=== PATIENT | male | born 1975 | race Hispanic/Latino ===

== ENCOUNTER 2016-08-17 22:53 | Inpatient (IN) | payer MEDICAID ==
[2016-08-17 23:18] VITALS: O2SAT 98
--- NOTE | 2016-08-18 00:03 | C.PDOC ---
Time Seen by Provider: 08/17/16 23:52 Chief Complaint (Nursing): Psychiatric Evaluation History Per: Patient Current Symptoms Are (Timing): Still Present Suicide/Self Injury Attempted (Context): None Modifying Factor(s): Alcohol, Narcotics Severity: Moderate Associated Symptoms: Depression, Suicidal Thoughts Additional History Per: Prior Records Past Medical History Reviewed: Historical Data, Nursing Documentation, Vital Signs Vital Signs: Last Vital Signs Temp 98.4 F 08/17/16 23:13 Pulse 93 H 08/17/16 23:13 Resp 18 08/17/16 23:13 BP 129/86 08/17/16 23:13 Pulse Ox 98 08/18/16 00:03 - Medical History PMH: Anxiety, Bipolar Disorder, Depression, Hepatitis (Hx of) Surgical History: No Surg Hx - [facility] Procedures ALCOHOL DETOXIFICATION (12/26/13) GROUP PSYCHOTHERAPY (07/28/16) INDIV PSYCHOTHERAPY FOR SUBSTANCE ABUSE TREATMENT, SUPPORT (07/28/16) INDIVID PSYCHOTHERAP NEC (01/15/14) INDIVIDUAL PSYCHOTHERAPY, SUPPORTIVE (07/28/16) MEDICATION MANAGEMENT (07/28/16) MEDS MGMT FOR SUBSTANCE ABUSE TREATMENT, METHADONE MAINT (07/28/16) MEDS MGMT FOR SUBSTANCE ABUSE TREATMENT, OTH REPL MED (07/28/16) OTHER GROUP THERAPY (01/15/14) Family History: States: Unknown Family Hx - Social History Hx Tobacco Use: Yes Hx Alcohol Use: Yes Hx Substance Use: Yes (IVDU Heroin) - Immunization History Hx Tetanus Toxoid Vaccination: No Hx Influenza Vaccination: No Hx Pneumococcal Vaccination: No Review Of Systems Except As Marked, All Systems Reviewed And Found Negative. Constitutional: Negative for: Fever Cardiovascular: Negative for: Chest Pain Respiratory: Negative for: Shortness of Breath Gastrointestinal: Negative for: Vomiting, Abdominal Pain Musculoskeletal: Negative for: Neck Pain Neurological: Negative for: Weakness, Numbness, Seizures, Altered Mental Status Physical Exam - Physical Exam Appears: Non-toxic, No Acute Distress Skin: Normal Color, Warm, Dry Head: Atraumatic, Normacephalic Eye(s): bilateral: PERRL, EOMI Neck: Normal ROM, Supple Cardiovascular: Rhythm Regular Respiratory: Normal Breath Sounds, No Accessory Muscle Use Gastrointestinal/Abdominal: Soft, No Tenderness Extremity: Normal ROM Neurological/Psych: Oriented x3, Normal Motor, Normal Sensation ED Course And Treatment - Laboratory Results Result Diagrams: 08/18/16 00:26 08/18/16 00:26 O2 Sat by Pulse Oximetry: 98 Pulse Ox Interpretation: Normal Progress Note: Pt is medically stable for psychiatric admission. Disposition Counseled Patient/Family Regarding: Studies Performed, Diagnosis - Disposition Disposition: HOSPITALIZED Disposition Time: 02:53 Condition: STABLE - Clinical Impression Clinical Impression: Bipolar disorder, Drug abuse Decision To Admit - Pt Status Changed To: Hospital Disposition Of: Inpatient - Admit Certification Admit to Inpatient:: After my assessment, the patient will require hospitalization for at least two midnights. This is because of the severity of symptoms shown, intensity of services needed, and/or the medical risk in this patient being treated as an outpatient. - InPatient: Physician Admission Certification: I certify that this patient requires 2 or more midnights of care for the following reason:: Psych - . Bed Request Type: Psychiatry Admitting Physician: Lucila Persaud Patient Diagnosis: Bipolar disorder, Drug abuse
[2016-08-18 00:29] LABS: BASO # 0.1 K/uL (0.0-0.2); BASO % 0.7 % (0.0-2.0); EOS # 0.3 K/uL (0.0-0.7); HEMATOCRIT 37.7 % (35.0-51.0); LYMPH # 2.4 K/uL (1.0-4.3); MEAN CELL VOLUME 92.7 fL (80.0-94.0); MEAN CORPUSCULAR HGB CONC 33.4 g/dL (33.0-37.0); MEAN PLATELET VOLUME 9.6 fL (7.2-11.7); MONO # 0.6 K/uL (0.0-0.8); MONO % 7.8 % (0.0-10.0); NRBC % 0.1 % (0.0-2.0); RED CELL DISTRIBUTION WIDTH 13.7 % (11.5-14.5); WHITE BLOOD COUNT 8.2 K/uL (4.8-10.8)
[2016-08-18 00:38] LABS: LITHIUM 0.3 mmol/L (0.6-1.2)
[2016-08-18 00:40] LABS: CHLORIDE 96 mmol/L (98-107); POTASSIUM 4.1 mmol/L (3.6-5.2); SODIUM 137 mmol/L (132-148)
[2016-08-18 00:42] LABS: ALB/GLOB RATIO 1.1 (1.0-2.1); ALKALINE PHOSPHATASE 53 U/L (38-126); AST/SGOT 86 U/L (17-59); BILIRUBIN,TOTAL 0.4 mg/dL (0.2-1.3); CARBON DIOXIDE 31 mmol/L (22-30); GFR AFRICAN-AMERICAN > 60; TOTAL PROTEIN 7.7 g/dL (6.3-8.3)
[2016-08-18 00:43] LABS: ALCOHOL SERUM < 10 mg/dl (0-10); ALT/SGPT 149 U/L (21-72); BLOOD UREA NITROGEN 14 mg/dL (9-20); CALCIUM 8.5 mg/dl (8.6-10.4); GLUCOSE,RANDOM 92 mg/dL (75-110)
[2016-08-18 00:56] LABS: RBC URINE < 1 /hpf (0-3); URINE BILIRUBIN NEGATIVE (NEGATIVE); URINE BLOOD NEGATIVE (NEGATIVE); URINE COLOR Yellow (YELLOW); URINE GLUCOSE (UA) NORMAL (Normal); URINE KETONE NEGATIVE (NEGATIVE); URINE LEUKOCYTE ESTERASE NEG Leu/uL (Negative); URINE PROTEIN NEGATIVE (NEGATIVE); URINE UROBILINOGEN NORMAL mg/dL (0.2-1.0); WBC URINE 1 /hpf (0-5)
[2016-08-18] MEDS ORDERED: Lidocaine 1% Inj (20ml) ONE (02:50)
[2016-08-19 07:56] VITALS: BP 111/74; PULSE 88; RESP 19; TEMP 98
== END 2016-08-19 14:45 | disposition left against medical advice (07) | DRG 430 ==
LOC: C.ER 22:53 → SUPCPDRO 22:53 → C.5E 08-18 02:54
PROVIDERS: ADMIT Psychiatry & Neurology Psychiatry; ATTEND Psychiatry & Neurology Psychiatry
PROC: GZ3ZZZZ Medication Management (ICD-10-PCS; principal; 2016-08-18)
PROC: HZ81ZZZ Medication Management for Substance Abuse Treatment, Methadone Maintenance (ICD-10-PCS; 2016-08-18)
DX: F31.4 Bipolar disorder, current episode depressed, severe, without psychotic features (principal); F11.20 Opioid dependence, uncomplicated; R45.851 Suicidal ideations; F14.10 Cocaine abuse, uncomplicated; F41.9 Anxiety disorder, unspecified; F10.20 Alcohol dependence, uncomplicated; F17.210 Nicotine dependence, cigarettes, uncomplicated; Z91.013 Allergy to seafood

== ENCOUNTER 2016-11-01 19:37 | Inpatient (IN) | payer MEDICAID ==
[2016-11-01 20:49] LABS: BASO # 0.1 K/uL (0.0-0.2); BASO % 0.9 % (0.0-2.0); EOS # 0.2 K/uL (0.0-0.7); EOS % 3.4 % (0.0-4.0); HEMATOCRIT 38.5 % (35.0-51.0); MEAN CELL VOLUME 91.7 fL (80.0-94.0); MEAN CORPUSCULAR HEMOGLOBIN 30.7 pg (27.0-31.0); MEAN CORPUSCULAR HGB CONC 33.5 g/dL (33.0-37.0); MEAN PLATELET VOLUME 10.5 fL (7.2-11.7); MONO # 0.4 K/uL (0.0-0.8); MONO % 6.2 % (0.0-10.0); RED CELL DISTRIBUTION WIDTH 13.5 % (11.5-14.5); WHITE BLOOD COUNT 7.1 K/uL (4.8-10.8)
[2016-11-01 20:57] LABS: CHLORIDE 99 mmol/L (98-107)
[2016-11-01 20:58] LABS: POTASSIUM 4.2 mmol/L (3.6-5.2); SODIUM 140 mmol/L (132-148)
[2016-11-01 21:00] LABS: ALB/GLOB RATIO 1.3 (1.0-2.1); ALT/SGPT 133 U/L (21-72); AST/SGOT 86 U/L (17-59); BILIRUBIN,TOTAL 0.5 mg/dL (0.2-1.3); BLOOD UREA NITROGEN 14 mg/dL (9-20); CARBON DIOXIDE 30 mmol/L (22-30); GFR AFRICAN-AMERICAN > 60; GLUCOSE,RANDOM 104 mg/dL (75-110); TOTAL PROTEIN 6.9 g/dL (6.3-8.3)
[2016-11-01 21:01] LABS: ALCOHOL SERUM < 10 mg/dl (0-10); CALCIUM 8.8 mg/dl (8.6-10.4)
[2016-11-01 21:16] LABS: ALKALINE PHOSPHATASE 43 U/L (38-126)
--- NOTE | 2016-11-01 22:12 | C.PDOC ---
Time Seen by Provider: 11/01/16 20:11 Chief Complaint (Nursing): Psychiatric Evaluation History Per: Patient Onset/Duration Of Symptoms: Days Current Symptoms Are (Timing): Still Present Suicide/Self Injury Attempted (Context): None Modifying Factor(s): Alcohol, Narcotics Severity: Moderate Associated Symptoms: Depression, Suicidal Thoughts Additional History Per: Prior Records Past Medical History Reviewed: Historical Data, Nursing Documentation, Vital Signs Vital Signs: Last Vital Signs Temp 98.4 F 11/01/16 19:58 Pulse 69 11/01/16 19:58 Resp 16 11/01/16 19:58 BP 136/89 11/01/16 19:58 Pulse Ox 100 11/01/16 19:58 - Medical History PMH: Anxiety, Bipolar Disorder, Depression, Hepatitis (Hx of) - [facility] Procedures ALCOHOL DETOXIFICATION (12/26/13) GROUP PSYCHOTHERAPY (07/28/16) INDIV PSYCHOTHERAPY FOR SUBSTANCE ABUSE TREATMENT, SUPPORT (07/28/16) INDIVID PSYCHOTHERAP NEC (01/15/14) INDIVIDUAL PSYCHOTHERAPY, SUPPORTIVE (07/28/16) MEDICATION MANAGEMENT (08/18/16) MEDS MGMT FOR SUBSTANCE ABUSE TREATMENT, METHADONE MAINT (08/18/16) MEDS MGMT FOR SUBSTANCE ABUSE TREATMENT, OTH REPL MED (07/28/16) OTHER GROUP THERAPY (01/15/14) Family History: States: Unknown Family Hx - Social History Hx Tobacco Use: Yes Hx Alcohol Use: Yes Hx Substance Use: Yes (IVDU Heroin) - Immunization History Hx Tetanus Toxoid Vaccination: No Hx Influenza Vaccination: No Hx Pneumococcal Vaccination: No Review Of Systems Except As Marked, All Systems Reviewed And Found Negative. Constitutional: Negative for: Fever, Weakness Cardiovascular: Negative for: Chest Pain Respiratory: Negative for: Shortness of Breath Gastrointestinal: Negative for: Vomiting, Abdominal Pain Musculoskeletal: Negative for: Neck Pain Skin: Negative for: Rash Neurological: Negative for: Weakness, Numbness, Seizures Physical Exam - Physical Exam Appears: Non-toxic, No Acute Distress Skin: Normal Color, Warm, Dry, No Rash Head: Atraumatic, Normacephalic Eye(s): bilateral: PERRL, EOMI Neck: Normal ROM, Supple Cardiovascular: Rhythm Regular Respiratory: Normal Breath Sounds, No Accessory Muscle Use Gastrointestinal/Abdominal: Soft, No Tenderness Back: No CVA Tenderness Extremity: Normal ROM, No Deformity Neurological/Psych: Oriented x3, Normal Motor, Normal Sensation ED Course And Treatment - Laboratory Results Result Diagrams: 11/01/16 20:45 11/01/16 20:45 Lab Interpretation: No Acute Changes O2 Sat by Pulse Oximetry: 100 Pulse Ox Interpretation: Normal Progress Note: Pt is medically stable for psychiatric admission. Disposition Counseled Patient/Family Regarding: Studies Performed, Diagnosis - Disposition Disposition: HOSPITALIZED Disposition Time: 22:16 Condition: STABLE - Clinical Impression Clinical Impression: Bipolar disorder Decision To Admit - Pt Status Changed To: Hospital Disposition Of: Inpatient - Admit Certification Admit to Inpatient:: After my assessment, the patient will require hospitalization for at least two midnights. This is because of the severity of symptoms shown, intensity of services needed, and/or the medical risk in this patient being treated as an outpatient. - InPatient: Physician Admission Certification: I certify that this patient requires 2 or more midnights of care for the following reason:: Psych. - . Bed Request Type: Psychiatry Admitting Physician: Lucila Persaud Patient Diagnosis: Bipolar disorder
[2016-11-01 23:44] LABS: RBC URINE 1 /hpf (0-3); URINE BACTERIA RARE (<OCC); URINE BILIRUBIN NEGATIVE (NEGATIVE); URINE BLOOD NEGATIVE (NEGATIVE); URINE COLOR Yellow (YELLOW); URINE GLUCOSE (UA) NORMAL (Normal); URINE KETONE NEGATIVE (NEGATIVE); URINE LEUKOCYTE ESTERASE NEG Leu/uL (Negative); URINE PROTEIN NEGATIVE (NEGATIVE); URINE UROBILINOGEN NORMAL mg/dL (0.2-1.0); WBC URINE 2 /hpf (0-5)
[2016-11-02] MEDS ORDERED: Aluminum Hydroxide/Magnesium Hydroxide Susp (30 mL) PO PRN (10:35)
--- NOTE | 2016-11-02 10:41 | PCM.PSYCH ---
Initial Psychiatric Evaluation - Initial Psychiatric Evaluation Type of Admission: Voluntary Legal Status: Capacity Chief Complaint (in patient's own words): "I feel depressed." History of Present Illness and Precipitating Events: Patient was seen and evaluated, chart reviewed and discussed with the nurse. The patient is a 41yo male who is here for opioid abuse, depression, and suicidal ideation. The patient states that he is single with no children and is unemployed but supports himself by panhandling. He says that he used to live with a friend in [place]. He says that he progressively became depressed and suicidal but hasn't had any suicide attempts in the last 10yrs. However, he says that in the past he attempted suicide by trying to hang himself. He states that he was here on the psych floor some time this year and twice a couple years ago. Upon discharge, he stayed at the [facility] for 1 month and then stopped taking his medications and relapsed on drugs. He states that he injects 15 bags of heroin a day and last used yesterday. He also says that he drinks 3 pints of vodka a day and last used yesterday as well. He states that he's been to a couple of detox facilities over the past 20yrs including [facility] a month ago and [facility]. He denies the use of cocaine or marijuana. He says he is currently experiencing signs of withdrawal such as nausea, vomiting, diarrhea, hot and cold sweats, and shaking. He denies any auditory or visual hallucinations. He states that he feels hopeless and depressed and has had poor sleep. He denies a past medical history or allergies. The patient appears to have a depressed mood, flat affect, and is lethargic. He appears to be organized and have appropriate speech. He is slightly unkempt and has been lying in bed all day. Supportive therapy and psychoeducation were given. Current Medications: Active Medications Generic Name Dose Route Start Last Admin Trade Name Freq PRN Reason Stop Dose Admin Al Hydrox/Mg Hydrox/Simethicone 30 ml 11/02/16 10:35 Maalox 30 Ml PO TID PRN Indigestion / Heartburn Clonidine HCl 0.1 mg 11/02/16 10:35 Catapres PO Q8 PRN COWS Score More or Equal to 5 Ibuprofen 600 mg 11/01/16 23:54 Motrin Tab PO Q6 PRN Pain, moderate (4-7) Loperamide HCl 2 mg 11/02/16 10:35 Imodium PO Q8 PRN Diarrhea Lorazepam 1 mg 11/01/16 23:54 11/02/16 00:36 Ativan PO 1 mg Q6 PRN Administration Anxiety Methadone HCl 20 mg 11/02/16 10:35 Methadone PO 11/02/16 10:36 ONCE ONE Ondansetron HCl 4 mg 11/02/16 10:35 Zofran Tab PO Q8 PRN Nausea/Vomiting Paroxetine HCl 10 mg 11/03/16 10:00 Paxil PO QAM ANDERSON Trazodone HCl 100 mg 11/01/16 23:54 11/02/16 00:36 Desyrel PO 100 mg HS PRN Administration Sleep Past Psychiatric History - Past Psychiatric History Previous Treatment History: Inpatient Pertinent Medical Hx (Current Medical&Sleep Prob, Allergies): Allergies Allergy/AdvReac Type Severity Reaction Status Date / Time FISH Allergy Severe ANAPHYLAXIS Verified 11/01/16 20:00 Gabapentin [Neurontin] 300 mg PO TID #90 cap 08/01/16 Tegretol mg PO DAILY 11/01/16 Review of Systems - Review of Systems All systems: reviewed and no additional remarkable complaints except - Psychiatric Psychiatric: Anxiety, Depression, Irritability, Suicidal Ideation. absent: Auditory Hallucinations, Visual Hallucinations Mental Status Examination - Personal Presentation Personal Presentation: Looks stated age - Affect Affect: Constricted, Depressed - Motor Activity Motor Activity: Calm - Reliability in Providing Information Reliability in Providing Information: Fair - Speech Speech: Organized - Mood Mood: Depressed, Anxious - Formal Thought Process Formal Thought Process: No Impairment - Obsessions/Compulsions Obsessions: No Compulsions: No - Cognitive Functions Orientation: Person, Place, Situation, Time Sensorium: Alert Attention/Concentration: Attentive Abstract Thinking: Clarence Estimate of Intelligence: Below average Judgement: Imparied, as evidence by: Poor judgement, Imparied, as evidence by: Lack of insight into illness - Risk Risk: Suicidal, Withdrawal, Diminished functioning - Strength & Assets Inventory Strength & Assets Inventory: Cooperative DSM 5 DX - DSM 5 DSM 5 Diagnosis: Major depressive disorder recurrent severe without psychotic features Opioid use disorder severe Opioid withdrawal Alcohol use disorder severe Cocaine use disorder severe - Recommended/Plan of Treatment Treatment Recommendations and Plan of Treatment: Major depressive disorder recurrent severe without psychotic features CBT Psychoeducation Supportive therapy, group therapy, individual therapy Paxil 10 mg daily Trazodone 100 mg by mouth daily at bedtime Opioid withdrawal CBT Psychoeducation Supportive therapy, individual therapy Clonidine when necessary Methadone taper Opioid use disorder severe CBT Psychoeducation Supportive therapy, individual therapy Use ND for abstinence Alcohol use disorder severe CBT Psychoeducation Supportive therapy, individual therapy Use ND for abstinence Ativan when necessary Start folic acid/thiamine/multivitamin Cocaine use disorder severe CBT Psychoeducation Supportive therapy, individual therapy Use ND for abstinence - Smoking Cessation Smoking Cessation Initiated: No
[2016-11-03] MEDS: Multiple Vitamins Tab PO SCH (09:25)
--- NOTE | 2016-11-03 10:13 | PCM.PYCHPN ---
Psychiatric Progress Note - Psychiatric Progress Note Patient Chief Complaint: "I feel depressed." Mental Status Examination - Cognitive Function Orientation: Person, Place, Situation, Time - Mood Mood: Depressed, Anxious - Affect Affect: Constricted, Depressed - Formal Thought Process Formal Thought Process: No Impairment - Homicidal Ideation Homicidal Ideation: No Goal/Treatment Plan - Goal/Treatment Plan Progress Toward Problem(s) and Goals/Treatment Plan: Major depressive disorder recurrent severe without psychotic features CBT Psychoeducation Supportive therapy, group therapy, individual therapy Paxil 10 mg daily Trazodone 100 mg by mouth daily at bedtime Opioid withdrawal CBT Psychoeducation Supportive therapy, individual therapy Clonidine when necessary Methadone taper Opioid use disorder severe CBT Psychoeducation Supportive therapy, individual therapy Use MD for abstinence Alcohol use disorder severe CBT Psychoeducation Supportive therapy, individual therapy Use MD for abstinence Ativan when necessary Start folic acid/thiamine/multivitamin Cocaine use disorder severe CBT Psychoeducation Supportive therapy, individual therapy Use MD for abstinence
[2016-11-04 07:35] VITALS: BP 107/67; PULSE 76; RESP 16; TEMP 98.3; O2SAT 99
[2016-11-04] MEDS: Multiple Vitamins Tab PO SCH (09:06)
--- NOTE | 2016-11-04 11:54 | PCM.PYCHDC ---
Mental Status Examination - Mental Status Examination Orientation: Person, Place, Situation, Time Memory: Intact Mood: Neutral Affect: Constricted Speech: Soft Attention: WNL Concentration: WNL Association: WNL Fund of Knowledge: WNL Formal Thought Process: No Impairment Description of patient's judgement and insight: good, fair Psychotic Thoughts and Behaviors: denies any AVH Suicidal Ideation: No Current Homicidal Ideation?: No Discharge Summary - Discharge Note Reason for Hospitalization: Patient was seen and evaluated, chart reviewed and discussed with the nurse. The patient is a 41yo male who is here for opioid abuse, depression, and suicidal ideation. The patient states that he is single with no children and is unemployed but supports himself by panhandling. He says that he used to live with a friend in [place]. He says that he progressively became depressed and suicidal but hasn't had any suicide attempts in the last 10yrs. However, he says that in the past he attempted suicide by trying to hang himself. He states that he was here on the psych floor some time this year and twice a couple years ago. Upon discharge, he stayed at the [facility] for 1 month and then stopped taking his medications and relapsed on drugs. He states that he injects 15 bags of heroin a day and last used yesterday. He also says that he drinks 3 pints of vodka a day and last used yesterday as well. He states that he's been to a couple of detox facilities over the past 20yrs including [facility] a month ago and [facility]. He denies the use of cocaine or marijuana. He says he is currently experiencing signs of withdrawal such as nausea, vomiting, diarrhea, hot and cold sweats, and shaking. He denies any auditory or visual hallucinations. He states that he feels hopeless and depressed and has had poor sleep. He denies a past medical history or allergies. The patient appears to have a depressed mood, flat affect, and is lethargic. He appears to be organized and have appropriate speech. He is slightly unkempt and has been lying in bed all day. Consultations:: List each consultation separately and include: 1. Reason for request. 2. Findings. 3. Follow-up Summary of Hospital Course include:: 1. Description of specific treatment plan utilized for patients during their course of treatmen. 2. Summarize the time- course for resolution of acute symptoms and/or regressed behaviors. 3. Describe issues identified and worked on during hospitalization. 4. Describe medication utilized. 5. Describe medical problems identified and treated. 6. Reassessment of suicide risk Summary of Hospital Course: During the course of his stay, patient (pt) started progressively improving and he no longer remained anxious and irritable. He tolerated the withdrawal protocol very well. He didnt have any shakes, sweating, tremors or cramps or any other withdrawal symptoms upon discharge. He started attending groups and meetings and started socializing. He denied any feelings of hopelessness, helplessness, and worthlessness, denied any problem with the sleep or appetite, denied suicidal ideation or homicidal ideation. Pt denied any auditory or visual hallucinations. Patient remained calm and cooperative and remained compliant with the medications. Patient tolerated the medications very well and denied any side effects. - Final Diagnosis (DSM 5) Condition upon Discharge: STABLE DSM 5: Major depressive disorder recurrent severe without psychotic features Opioid withdrawal Opioid use disorder severe Alcohol use disorder severe Cocaine use disorder severe Disposition: HOME/ ROUTINE Follow-up Treatment Plan: Education: Pt was educated and counseled about the risks and benefits of taking and not taking medications. Pt was educated and counseled about the risks of drinking and abusing drugs. Pt was educated and counseled to go to the ER or call 911 if pt develop suicidal ideation or homicidal ideation, worsening of symptoms or severe side effects of the meds. Prescriptions/Medication Reconciliation: PARoxetine [Paxil] 10 mg PO QAM #30 tab traZODone [Desyrel] 100 mg PO HS PRN #30 tab PRN Reason: Sleep - Smoking Cessation Smoking Cessation Medication prescribed: No - Antipsychotic Medications Pt discharged on 2 or more routine antipsychotic medications: No
== END 2016-11-04 12:20 | disposition home or self-care (01) | DRG 430 ==
LOC: C.ER 19:37 → C.5E 22:17
PROVIDERS: ADMIT Psychiatry & Neurology Psychiatry; ATTEND Psychiatry & Neurology Psychiatry
DX: F33.2 Major depressive disorder, recurrent severe without psychotic features (principal); R45.851 Suicidal ideations; F11.23 Opioid dependence with withdrawal; F14.90 Cocaine use, unspecified, uncomplicated; F10.10 Alcohol abuse, uncomplicated

== ENCOUNTER 2016-12-01 23:25 | Inpatient (IN) | payer MEDICAID ==
--- NOTE | 2016-12-01 23:46 | C.PDOC ---
History Of Present Illness Patient presents to the ER with a complaint of hearing voices after going on a 5 day drinking binge. Patient states this is new for him; he reports the voices tell him to kill himself. Denies HI, suicidal plan, or physical complaints at this time. Time Seen by Provider: 12/01/16 23:46 Chief Complaint (Nursing): Psychiatric Evaluation History Per: Patient History/Exam Limitations: no limitations Onset/Duration Of Symptoms: Days Current Symptoms Are (Timing): Still Present Suicide/Self Injury Attempted (Context): None Modifying Factor(s): Alcohol Severity: None Pain Scale Rating Of: 0 Associated Symptoms: Suicidal Thoughts. denies: Suicidal Plan Involuntary Hold By: None Recent travel outside of the [place]: No Past Medical History Reviewed: Historical Data, Nursing Documentation, Vital Signs - Medical History PMH: Anxiety, Bipolar Disorder, Depression, Hepatitis (Hx of) Surgical History: No Surg Hx - [facility] Procedures ALCOHOL DETOXIFICATION (12/26/13) GROUP PSYCHOTHERAPY (07/28/16) INDIV PSYCHOTHERAPY FOR SUBSTANCE ABUSE TREATMENT, SUPPORT (07/28/16) INDIVID PSYCHOTHERAP NEC (01/15/14) INDIVIDUAL PSYCHOTHERAPY, SUPPORTIVE (07/28/16) MEDICATION MANAGEMENT (08/18/16) MEDS MGMT FOR SUBSTANCE ABUSE TREATMENT, METHADONE MAINT (08/18/16) MEDS MGMT FOR SUBSTANCE ABUSE TREATMENT, OTH REPL MED (07/28/16) OTHER GROUP THERAPY (01/15/14) Family History: States: No Known Family Hx - Social History Hx Tobacco Use: Yes Hx Alcohol Use: Yes Hx Substance Use: Yes - Immunization History Hx Tetanus Toxoid Vaccination: No Hx Influenza Vaccination: No Hx Pneumococcal Vaccination: No Review Of Systems Constitutional: Negative for: Fever, Chills Gastrointestinal: Negative for: Nausea, Vomiting, Diarrhea Psych: Positive for: Suicidal ideation Physical Exam - Physical Exam Appears: Non-toxic, Other (ETOH on breath) Skin: Warm, Dry Oral Mucosa: Moist Chest: Symmetrical, No Tenderness Cardiovascular: Rhythm Regular, No Murmur Respiratory: No Rales, No Rhonchi, No Wheezing Gastrointestinal/Abdominal: Soft, No Tenderness Neurological/Psych: Oriented x3 ED Course And Treatment - Laboratory Results Result Diagrams: 12/02/16 00:05 12/02/16 00:05 O2 Sat by Pulse Oximetry: 98 Pulse Ox Interpretation: Normal Progress Note: Blood work and urinalysis ordered. Crisis consulted. Disposition Discussed With DrLillie: Yuliana Peña Comment: accepted the pt on his service and took over the care at 2:06AM Doctor Will See Patient In The: Hospital Counseled Patient/Family Regarding: Studies Performed, Diagnosis - Disposition Disposition: HOSPITALIZED Disposition Time: 23:46 Condition: FAIR - POA Present On Arrival: None - Clinical Impression Clinical Impression: Bipolar 1 disorder, Opioid abuse, Alcohol abuse - Scribe Statement The provider has reviewed the documentation as recorded by the Scribe Antwon Combs All medical record entries made by the Scribe were at my direction and personally dictated by me. I have reviewed the chart and agree that the record accurately reflects my personal performance of the history, physical exam, medical decision making, and the department course for this patient. I have also personally directed, reviewed, and agree with the discharge instructions and disposition. Decision To Admit - Pt Status Changed To: Hospital Disposition Of: Inpatient - Admit Certification Admit to Inpatient:: After my assessment, the patient will require hospitalization for at least two midnights. This is because of the severity of symptoms shown, intensity of services needed, and/or the medical risk in this patient being treated as an outpatient. - InPatient: Physician Admission Certification: I certify that this patient requires 2 or more midnights of care for the following reason:: After my assessment, the patient will require hospitalization for at least two midnights. This is because of the severity of symptoms shown, intensity of services needed, and/or the medical risk in this patient being treated as an outpatient. - . Bed Request Type: Psychiatry Admitting Physician: Yuliana Peña Patient Diagnosis: Bipolar 1 disorder, Opioid abuse, Alcohol abuse
[2016-12-02 00:15] LABS: BASO # 0.1 K/uL (0.0-0.2); BASO % 0.9 % (0.0-2.0); EOS # 0.3 K/uL (0.0-0.7); EOS % 3.8 % (0.0-4.0); HEMOGLOBIN 13.2 g/dL (12.0-18.0); LYMPH # 3.3 K/uL (1.0-4.3); LYMPH % 47.8 % (20.0-40.0); MEAN CELL VOLUME 90.3 fL (80.0-94.0); MEAN CORPUSCULAR HEMOGLOBIN 30.4 pg (27.0-31.0); MEAN CORPUSCULAR HGB CONC 33.6 g/dL (33.0-37.0); MEAN PLATELET VOLUME 10.1 fL (7.2-11.7); MONO # 0.5 K/uL (0.0-0.8); MONO % 7.6 % (0.0-10.0); NEUT # 2.8 K/uL (1.8-7.0); NEUT % 39.9 % (50.0-75.0); NRBC % 0.1 % (0.0-2.0); RBC 4.36 Mil/uL (4.40-5.90); RED CELL DISTRIBUTION WIDTH 13.2 % (11.5-14.5); WHITE BLOOD COUNT 6.9 K/uL (4.8-10.8)
[2016-12-02 00:20] LABS: ALBUMIN 4.2 g/dL (3.5-5.0)
[2016-12-02 00:22] LABS: GFR AFRICAN-AMERICAN > 60; GFR NON-AFRICAN AMERICAN > 60
[2016-12-02 00:23] LABS: ALB/GLOB RATIO 1.1 (1.0-2.1); ALT/SGPT 134 U/L (21-72); AST/SGOT 93 U/L (17-59); BLOOD UREA NITROGEN 13 mg/dL (9-20); CALCIUM 8.9 mg/dl (8.6-10.4)
[2016-12-02 00:31] LABS: SQUAMOUS EPITHIAL < 1 /hpf (0-5); URINE AMORPHOUS SEDIMENT OCC /ul (<OCC); URINE BACTERIA RARE (<OCC); URINE BILIRUBIN NEGATIVE (NEGATIVE); URINE BLOOD NEGATIVE (NEGATIVE); URINE CLARITY Hazy (Clear); URINE COLOR Yellow (YELLOW); URINE GLUCOSE (UA) NORMAL (Normal); URINE LEUKOCYTE ESTERASE NEG Leu/uL (Negative); URINE NITRATE NEGATIVE (NEGATIVE); URINE PROTEIN NEGATIVE (NEGATIVE); URINE UROBILINOGEN NORMAL mg/dL (0.2-1.0)
[2016-12-02 01:00] LABS: BARBITURATES, UR NEGATIVE (NEGATIVE)
[2016-12-02 01:04] LABS: PHENCYCLIDINE, UR NEGATIVE (NEGATIVE)
[2016-12-02 01:34] LABS: BENZODIAZEPINES, UR POSITIVE (NEGATIVE); OPIATES, UR POSITIVE (NEGATIVE)
[2016-12-02 02:48] VITALS: O2SAT 97
[2016-12-02] MEDS ORDERED: Aluminum Hydroxide/Magnesium Hydroxide Susp (30 mL) PO PRN (10:09)
[2016-12-02] MEDS: Multiple Vitamins Tab PO SCH (13:45)
--- NOTE | 2016-12-02 18:44 | PCM.PSYCH ---
Initial Psychiatric Evaluation - Initial Psychiatric Evaluation Type of Admission: Voluntary Chief Complaint (in patient's own words): Of was drinking more for last 5 days, was not sleeping and was hearing voices telling me to kill myself. History of Present Illness and Precipitating Events: Patient is a 41 years old, single, unemployed, male, with history of bipolar disorder and alcohol use disorder was admitted due to worsening of his depression and command type auditory hallucinations telling him to kill himself. Patient reported he was noncompliant with treatment after discharge from the hospital, didn't follow-up with psychiatrist, ran out of medication. Reported for last 5 days he was drinking alcohol more than usual, unable to sleep and started hearing voices telling him to kill himself. Patient came to the hospital for help. Patient reported feeling depressed, decreased sleep and appetite, lost about 25 pounds over 3 months. Denied any suicidal or homicidal ideations currently, history of one suicidal attempts at the age of 14 years by hanging himself. Reported couldn't complete suicide has poor broke down. History of about 10 inpatient psychiatric hospitalization at [facility] ([facility]3]. Reported no current auditory hallucinations or visual hallucinations. Alcohol: Started drinking at the age of 26 years, currently was drinking 3 pints of vodka daily. His last drink was 24 of his ago. History of one previous detox and no rehabs. His longest period of abstinence was 9 months, 2 years ago. Heroine: Started using at the age of 19 years, 1 bundle daily, IV, last used 24 hours ago. Also smokes cigarettes, 1 pack daily and is requesting for nicotine patch. Patient was born in [place], high school graduation, not working for last 3 weeks. Currently lives with friends. Patient was never and has no children. His height is 6 feet 1 inch and weight is 175 pounds., Current Medications: Active Medications Generic Name Dose Route Start Last Admin Trade Name Freq PRN Reason Stop Dose Admin Al Hydrox/Mg Hydrox/Simethicone 30 ml 12/02/16 10:09 Maalox 30 Ml PO TID PRN Indigestion / Heartburn Clonidine HCl 0.1 mg 12/02/16 09:55 Catapres PO Q8 PRN COWS Score More or Equal to 5 Dicyclomine HCl 20 mg 12/02/16 13:28 Bentyl PO QID PRN ABDOMINAL PAIN Escitalopram Oxalate 10 mg 12/02/16 11:00 12/02/16 13:46 Lexapro PO 10 mg DAILY ANDERSON Administration Folic Acid 1 mg 12/02/16 10:00 12/02/16 13:48 Folic Acid PO 1 mg DAILY ANDERSON Administration Gabapentin 300 mg 12/02/16 10:00 12/02/16 17:55 Neurontin PO 300 mg BID ANDERSON Administration Ibuprofen 600 mg 12/02/16 10:46 Motrin Tab PO Q6H PRN Pain, moderate (4-7) Loperamide HCl 2 mg 12/02/16 10:09 Imodium PO Q8 PRN Diarrhea Methadone HCl 15 mg 12/03/16 10:00 Methadone PO 12/03/16 10:01 ONCE ONE Multivitamins 1 tab 12/02/16 10:00 12/02/16 13:45 Hexavitamin PO 1 tab DAILY ANDERSON Administration Nicotine 1 patch 12/03/16 10:00 Nicoderm Cq TD DAILY ANDERSON Ondansetron HCl 4 mg 12/02/16 09:55 Zofran Tab PO Q8 PRN Nausea/Vomiting Quetiapine Fumarate 50 mg 12/02/16 11:00 12/02/16 17:55 Seroquel PO 50 mg BID ANDERSON Administration Thiamine HCl 100 mg 12/02/16 10:00 12/02/16 13:45 Vitamin B1 Tab PO 100 mg DAILY ANDERSON Administration Trazodone HCl 100 mg 12/02/16 04:19 Desyrel PO HS PRN Insomnia Past Psychiatric History - Past Psychiatric History Previous Treatment History: Inpatient At [facility] hospital: [facility] ([facility]3] History of Abuse: None reported History of ETOH/Drug Use: See HPI History of Family Illness: Reported history of fall alcohol use in his paternal grandfather, paternal grandmother and his father Pertinent Medical Hx (Current Medical&Sleep Prob, Allergies): Allergies Allergy/AdvReac Type Severity Reaction Status Date / Time FISH Allergy Severe ANAPHYLAXIS Verified 11/01/16 20:00 Gabapentin [Neurontin] 300 mg PO TID #90 cap 08/01/16 Tegretol mg PO DAILY 11/01/16 PARoxetine [Paxil] 10 mg PO QAM #30 tab 11/04/16 traZODone [Desyrel] 100 mg PO HS PRN #30 tab 11/04/16 Hepatitis C Review of Systems - Psychiatric Psychiatric: Depression Mental Status Examination - Personal Presentation Personal Presentation: Looks stated age - Affect Affect: Depressed - Motor Activity Motor Activity: Calm - Reliability in Providing Information Reliability in Providing Information: Fair - Speech Speech: Organized - Mood Mood: Depressed - Formal Thought Process Formal Thought Process: No Impairment - Hallucinations/Delusions Hallucinations: Other (None reported) Delusions: Other - Obsessions/Compulsions Obsessions: None Compulsions: None - Cognitive Functions Orientation: Person, Place, Situation, Time Sensorium: Alert Attention/Concentration: Attentive Abstract Thinking: [place] Estimate of Intelligence: Average Judgement: Intact, as evidence by: Insight regarding need for hospitalization Memory: Recent intact, as evidence by: 3/3 object recall, Remote intact, as evidenced by: Ability to recall historical events - Risk Risk: Withdrawal, Diminished functioning - Strength & Assets Inventory Strength & Assets Inventory: Cooperative - Limitations Limitations: Other DSM 5 DX - DSM 5 DSM 5 Diagnosis: Bipolar 1 disorder most recent episode depressed with psychotic features Alcohol use disorder severe - Recommended/Plan of Treatment Treatment Recommendations and Plan of Treatment: Patient education Supportive therapy We'll start Ativan detox protocol for alcohol withdrawal symptoms Methadone detox for opiate withdrawal symptoms Other when necessary medications Patient wants to go to [facility] after discharge from the hospital for follow-up care Projected ELOS: 8 attend this Discharge Plan and Discharge Criteria: Patient wants to go to [facility] after discharge from the hospital for follow-up care - Smoking Cessation Smoking Cessation Initiated: Yes
[2016-12-03 09:44] VITALS: RESP 18
[2016-12-03] MEDS: Multiple Vitamins Tab PO SCH (10:19)
--- NOTE | 2016-12-03 16:00 | PCM.PYCHPN ---
Psychiatric Progress Note - Psychiatric Progress Note Patient seen today, length of contact: 16 min Patient Chief Complaint: I am feeling little better Problems Identified/Issues Discussed: Patient seen and evaluated, chart reviewed and discussed with the nurse. Patient reports improvement in his mood but still reports withdrawal symptoms, including cramps, nausea, sweating and headache. He denies any auditory or visual hallucinations. He reports improvement in the feelings of hopelessness and helplessness. He is taking medication and denied any side effects. Supportive therapy and psychoeducation were given. Medication Change: Yes (methaodne taper) Medical Record Reviewed: Yes Mental Status Examination - Cognitive Function Orientation: Person, Place, Situation, Time Memory: Intact Attention: WNL Concentration: Poor Association: WNL Fund of Knowledge: Poor - Mood Mood: Depressed - Affect Affect: Depressed - Speech Speech: Soft - Formal Thought Process Formal Thought Process: No Impairment - Suicidal Ideation Suicidal Ideation: No - Homicidal Ideation Homicidal Ideation: No Goal/Treatment Plan - Goal/Treatment Plan Need for Continued Stay: Discharge may exacerbated symptoms, Severe functional impairment Progress Toward Problem(s) and Goals/Treatment Plan: Bipolar 1 disorder most recent episode depressed with psychotic features Alcohol use disorder severe Patient education Supportive therapy We'll start Ativan detox protocol for alcohol withdrawal symptoms Methadone detox for opiate withdrawal symptoms Other when necessary medications Patient wants to go to [facility] after discharge from the hospital for follow-up care - Smoking Cessation Smoking Cessation Initiated: No
[2016-12-04 08:08] VITALS: BP 95/57; PULSE 73; TEMP 97.9
[2016-12-04] MEDS: Multiple Vitamins Tab PO SCH (10:09)
--- NOTE | 2016-12-04 10:15 | PCM.PYCHDC ---
Mental Status Examination - Mental Status Examination Orientation: Person, Place, Situation, Time Memory: Intact Mood: Neutral Affect: Constricted Speech: Soft Attention: WNL Concentration: WNL Association: WNL Fund of Knowledge: WNL Formal Thought Process: No Impairment Description of patient's judgement and insight: good, fair Psychotic Thoughts and Behaviors: denies any AVH Suicidal Ideation: No Current Homicidal Ideation?: No Discharge Summary - Discharge Note Reason for Hospitalization: Patient is a 41 years old, single, unemployed, male, with history of bipolar disorder and alcohol use disorder was admitted due to worsening of his depression and command type auditory hallucinations telling him to kill himself. Patient reported he was noncompliant with treatment after discharge from the hospital, didn't follow-up with psychiatrist, ran out of medication. Reported for last 5 days he was drinking alcohol more than usual, unable to sleep and started hearing voices telling him to kill himself. Patient came to the hospital for help. Patient reported feeling depressed, decreased sleep and appetite, lost about 25 pounds over 3 months. Denied any suicidal or homicidal ideations currently, history of one suicidal attempts at the age of 14 years by hanging himself. Reported couldn't complete suicide has poor broke down. History of about 10 inpatient psychiatric hospitalization at [facility]. Reported no current auditory hallucinations or visual hallucinations. Alcohol: Started drinking at the age of 26 years, currently was drinking 3 pints of vodka daily. His last drink was 24 of his ago. History of one previous detox and no rehabs. His longest period of abstinence was 9 months, 2 years ago. Heroine: Started using at the age of 19 years, 1 bundle daily, IV, last used 24 hours ago. Also smokes cigarettes, 1 pack daily and is requesting for nicotine patch. Patient was born in [place], high school graduation, not working for last 3 weeks. Currently lives with friends. Patient was never and has no children. His height is 6 feet 1 inch and weight is 175 pounds., Consultations:: List each consultation separately and include: 1. Reason for request. 2. Findings. 3. Follow-up Summary of Hospital Course include:: 1. Description of specific treatment plan utilized for patients during their course of treatmen. 2. Summarize the time- course for resolution of acute symptoms and/or regressed behaviors. 3. Describe issues identified and worked on during hospitalization. 4. Describe medication utilized. 5. Describe medical problems identified and treated. 6. Reassessment of suicide risk Summary of Hospital Course: During the course of his stay, patient (pt) started progressively improving and he no longer remained irritable, depressed, suicidal and agitated. His mood and withdrawal symptoms were improved and he started attending groups and meetings and started socializing. Patient denied any feelings of hopelessness, helplessness, and worthlessness, denied any problem with the sleep or appetite, denied suicidal ideation or homicidal ideation. Pt denied any auditory or visual hallucinations. Some changes were made in his current medications and patient was discharged on following medications. He tolerated these medications very well and denied any side effects. - Final Diagnosis (DSM 5) Condition upon Discharge: FAIR DSM 5: Bipolar 1 disorder most recent episode depressed with psychotic features Alcohol use disorder severe Disposition: HOME/ ROUTINE Follow-up Treatment Plan: Education: Pt was educated and counseled about the risks and benefits of taking and not taking medications. Pt was educated and counseled about the risks of drinking and abusing drugs. Pt was educated and counseled to go to the ER or call 911 if pt develop suicidal ideation or homicidal ideation, worsening of symptoms or severe side effects of the meds. Prescriptions/Medication Reconciliation: Escitalopram [Lexapro] 20 mg PO DAILY #30 tab Gabapentin [Neurontin] 300 mg PO BID #60 cap QUEtiapine [SEROquel] 50 mg PO BID #60 tab - Smoking Cessation Smoking Cessation Medication prescribed: No - Antipsychotic Medications Pt discharged on 2 or more routine antipsychotic medications: No
== END 2016-12-04 11:30 | disposition home or self-care (01) | DRG 430 ==
LOC: C.ER 23:25 → C.5E 12-02 02:07
PROVIDERS: ADMIT Psychiatry & Neurology Psychiatry; ATTEND Psychiatry & Neurology Psychiatry
PROC: GZ3ZZZZ Medication Management (ICD-10-PCS; principal; 2016-12-02)
PROC: HZ2ZZZZ Detoxification Services for Substance Abuse Treatment (ICD-10-PCS; 2016-12-02)
PROC: GZHZZZZ Group Psychotherapy (ICD-10-PCS; 2016-12-02)
PROC: GZ56ZZZ Individual Psychotherapy, Supportive (ICD-10-PCS; 2016-12-02)
DX: F31.5 Bipolar disorder, current episode depressed, severe, with psychotic features (principal); F11.20 Opioid dependence, uncomplicated; R44.0 Auditory hallucinations; F10.20 Alcohol dependence, uncomplicated; F17.210 Nicotine dependence, cigarettes, uncomplicated; Z91.19 Patient's noncompliance with other medical treatment and regimen; Z86.19 Personal history of other infectious and parasitic diseases; Z59.0 Homelessness; Z91.14 Patient's other noncompliance with medication regimen